=== PATIENT | female | born 1935 | race Caucasian/White ===

== ENCOUNTER → 2016-03-05 | Outpatient (CLI) | payer OTHER ==
[~2016-03-05] MED LIST: ACET-1256 PO; ALPHTAB4 PO; ASPI-428 PO; CALC1TAB9 PO; CLOP1TAB15 PO; EZET10TA63 PO; FESO8TAB PO; GLC/500 PO; LEVO88TA PO; LISI10TA PO; METO1TAB66 PO; MULTCAP33 PO; POLY335019 PO; PRED-301 PO; RANI150T3 PO
== END | disposition home or self-care (01) ==
LOC: C.LABMFLN 10:49
PROVIDERS: ATTEND Family Medicine
DX: R35.0 Frequency of micturition (principal)

== ENCOUNTER → 2016-03-12 | Outpatient (CLI) | payer OTHER ==
[2016-03-12 17:55] LABS: URINE APPEARANCE CLEAR (CLEAR); URINE BILIRUBIN NEG (NEG); URINE COLOR YELLOW; URINE NITRITE NEG (NEG); URINE PH 8.5 (4.5-7.5); URINE SPECIFIC GRAVITY 1.015 (1.000-1.030); UROBILINOGEN NEG (NEG)
[2016-03-12 18:08] LABS: MANUAL MICROSCOPIC REQUIRED? NO; REVIEW REQ? NO
== END | disposition home or self-care (01) ==
LOC: C.LABMFLN 14:23
PROVIDERS: ATTEND Family Medicine
DX: R30.0 Dysuria (principal)

== ENCOUNTER → 2016-05-22 | Outpatient (CLI) | payer OTHER ==
[2016-05-22 13:36] LABS: ALT/SGPT 19 U/L (12-78); AST/SGOT 12 U/L (15-37); BLOOD UREA NITROGEN 35 mg/dl (7-18); BUN/CREATININE RATIO 35.6 (10-20); CALCIUM 8.9 mg/dl (8.5-10.1); CARBON DIOXIDE 31 mmol/L (21-32); CHLORIDE 105 mmol/L (98-107); CHOLESTEROL 197 mg/dl (0-200); CREATININE 0.99 mg/dl (0.60-1.20); GLUCOSE 101 mg/dl (70-99); POTASSIUM 4.5 mmol/L (3.5-5.1); SODIUM 140 mmol/L (136-145); TRIGLYCERIDES 83 mg/dl (0-150); VERY LOW DENSITY LIPOPROT CALC 17 mg/dl
[2016-05-22 13:47] LABS: CHOLESTEROL/HDL RATIO 2.5; HDL CHOLESTEROL 79 mg/dl; LDL CHOLESTEROL CALCULATED 101 mg/dl
[2016-05-22 13:51] LABS: ESTIMATED AVERAGE GLUCOSE 126 mg/dl; HA1C FLAG Normal (Normal)
== END | disposition home or self-care (01) ==
LOC: C.LABMFLN 08:24
PROVIDERS: ATTEND Family Medicine
DX: E11.40 Type 2 diabetes mellitus with diabetic neuropathy, unspecified (principal); E78.00 Pure hypercholesterolemia, unspecified; I10 Essential (primary) hypertension; E03.9 Hypothyroidism, unspecified

== ENCOUNTER → 2016-08-30 | Outpatient (CLI) | payer OTHER | END | disposition home or self-care (01) | LOC: C.LABMFLN 09:34 | PROVIDERS: ATTEND Family Medicine | DX: R39.15 Urgency of urination (principal); R35.0 Frequency of micturition; N39.0 Urinary tract infection, site not specified ==

== ENCOUNTER → 2016-09-11 | Outpatient (CLI) | payer OTHER ==
[2016-09-11 13:48] LABS: ALKALINE PHOSPHATASE 66 U/L (45-117); ALT/SGPT 23 U/L (12-78); AST/SGOT 16 U/L (15-37); BLOOD UREA NITROGEN 26 mg/dl (7-18); BUN/CREATININE RATIO 26.5 (10-20); CALCIUM 9.2 mg/dl (8.5-10.1); CARBON DIOXIDE 29 mmol/L (21-32); CHLORIDE 102 mmol/L (98-107); GLUCOSE 98 mg/dl (70-99); HDL CHOLESTEROL 88 mg/dl; POTASSIUM 4.4 mmol/L (3.5-5.1); SODIUM 140 mmol/L (136-145); TRIGLYCERIDES 77 mg/dl (0-150); VERY LOW DENSITY LIPOPROT CALC 15 mg/dl
[2016-09-11 13:53] LABS: ESTIMATED AVERAGE GLUCOSE 100 mg/dl; HA1C FLAG Normal (Normal)
[2016-09-11 13:59] LABS: CHOLESTEROL 218 mg/dl (0-200); CHOLESTEROL/HDL RATIO 2.5; LDL CHOLESTEROL CALCULATED 115 mg/dl
--- NOTE | 2016-09-18 06:56 | CODING QUERY MEDICAL NECESSITY ---
SUPPORTING DIAGNOSIS NEEDED A supporting diagnosis is required for the test/procedure performed on this patient in order for us to be reimbursed by the patient's insurance. Please provide a supporting diagnosis for the following test/procedure listed below next to the test name along with your signature. *If there is no additional diagnosis for this patient that would support the following test/procedure please document that below next to the test/procedure. Test(s)/Procedure(s) that require a supporting diagnosis: * HEMOGLOBIN A1C DIAGNOSIS: Provider Signature: Date: Thank you Lisa Fernandez [employer] Once completed, please kindly fax back to [phone] For questions please call [phone]
== END | disposition home or self-care (01) ==
LOC: C.LABMFLN 08:26
PROVIDERS: ATTEND Family Medicine
DX: R30.0 Dysuria (principal); E78.00 Pure hypercholesterolemia, unspecified; I10 Essential (primary) hypertension; E03.9 Hypothyroidism, unspecified; E11.9 Type 2 diabetes mellitus without complications

== ENCOUNTER → 2016-10-25 | Day surgery (SDC) | payer OTHER ==
[2016-10-10 12:02] VITALS: BMI 18.0
[~2016-10-25] VITALS: Ht 160 cm; Wt 48.2 kg
[~2016-10-25] MED LIST changes: +LIDOCAINE HCL 2% 2 ML VIAL (20MG/ML) ONE; +PROPOFOL IV EMULSION 10 MG/ML 20 ML VIAL IV ONE
[2016-10-25 13:03] VITALS: Ht 160 cm; Wt 48.2 kg
--- NOTE | 2016-10-25 14:08 | Endo History and Physical ---
History & Physical Date of Service: Oct 25, 2016. Chief Complaint: COLON ABNORMALITY, + COLOGUARD Referring Physician: DR. KERWIN HOFFMAN History of Present Illness For colonoscopy Past Surgical History Hx Cardiac Surgery: Yes (HEART CATH X2, STENTS X3, FEMORAL ARTERY STENTS X2) Hx Internal Defibrillator: No Hx Pacemaker: No Hx Abdominal Surgery: Yes (PARTIAL HYSTER, AUTUMN) Hx of Implantable Prosthesis: No Hx Post-Op Nausea and Vomiting: No Hx Cancer Surgery: No Hx Thoracic Surgery: No Hx Orthopedic: No Hx Urinary Tract Surgery: No Family History Polyp Social History Smoking Status: Never Smoker Hx Substance Use: No Hx Alcohol Use: No Allergies Coded Allergies: Acetaminophen (Verified Allergy, Unknown, HIVES, 10/10/16) Adhesives (Verified Allergy, Unknown, RASH, 10/10/16) Codeine (Verified Allergy, Unknown, PT UNSURE REACTION, 10/10/16) Hydrocodone (Verified Allergy, Unknown, HIVES, 10/10/16) Nitroglycerin (Verified Allergy, Unknown, SEIZURE, 10/10/16) Statins (Verified Allergy, Unknown, MUSCLE WEAKNESS AND PAIN, 10/10/16) Sulfa Antibiotics (Verified Allergy, Unknown, RASH, 10/10/16) Current Medications Reported Home Medications Medications Dose Route/Sig Max Daily Dose Days Date Category Beano ([id number]) 1 Tab Tab 1 Tab PO NOON 10/10/16 Reported Tylenol (Acetaminophen) 500 Mg Tab 500 Mg PO Q6H PRN 10/10/16 Reported Miralax (Polyethylene Glycol 3350) 1 Pow Pow 17 Gm PO DAILY PRN 10/10/16 Reported Toviaz (Fesoterodine Fumarate) 8 Mg Tab 1 Tab PO QAM 10/10/16 Reported Plavix (Clopidogrel Bisulfate) 75 Mg Tab 75 Mg PO QAM 10/10/16 Reported Prinivil (Lisinopril) 10 Mg Tab 10 Mg PO QAM 10/10/16 Reported Glucophage (Metformin Hcl) 500 Mg Tab 500 Mg PO QAM 10/10/16 Reported Zantac (Ranitidine HCl) 150 Mg Tab 150 Mg PO BID 10/10/16 Reported Zetia (Ezetimibe) 10 Mg Tab 10 Mg PO QAM 10/10/16 Reported Citracal + D3 Maximum (Calcium Citrate-Vitamin D) 1 Tab Tab 2 Tab PO TID 10/10/16 Reported Preservision Areds (Multiple Vitamins W/ Minerals) 1 Cap Cap 1 Cap PO BID 10/10/16 Reported Synthroid (Levothyroxine Sodium) 88 Mcg Tab 88 Mcg PO QPM 10/10/16 Reported Ecotrin Low Strength (Aspirin) 81 Mg Tab 1 Tab PO QAM 10/10/16 Reported Prednisone 5 Mg Tab 5 Mg PO QAM 10/10/16 Reported Toprol Xl (Metoprolol Succinate) 50 Mg Tab 50 Mg PO QAM 10/10/16 Reported Vital Signs Weight (Kilograms): 48.18 Height (Feet): 5 Height (Inches): 3 Date Time Temp Pulse Resp B/P (MAP) Pulse Ox O2 Delivery O2 Flow Rate FiO2 10/25/16 13:09 36.2 68 18 175/50 (91) 100 Room Air Physical Exam General Appearance: WD/WN Respiratory/Chest: Respiratory effort: no dyspnea Cardiovascular: Heart Auscultation: RRR Abdomen: Inspection & Palpation: soft Assessment and Plan Positive cologuard test for colonoscopy
--- NOTE | 2016-10-25 14:42 | Discharge Instructions ---
Endoscopy Patient Instructions Date / Procedure(s) Performed Oct 25, 2016. Colonoscopy Allergy Information Coded Allergies: Acetaminophen (Verified Allergy, Unknown, HIVES, 10/10/16) Adhesives (Verified Allergy, Unknown, RASH, 10/10/16) Codeine (Verified Allergy, Unknown, PT UNSURE REACTION, 10/10/16) Hydrocodone (Verified Allergy, Unknown, HIVES, 10/10/16) Nitroglycerin (Verified Allergy, Unknown, SEIZURE, 10/10/16) Statins (Verified Allergy, Unknown, MUSCLE WEAKNESS AND PAIN, 10/10/16) Sulfa Antibiotics (Verified Allergy, Unknown, RASH, 10/10/16) Discharge Date / Findings Oct 25, 2016. redundant colon Medication Instructions Stopped Medication(s): PLAVIX Restart Stopped Medication(s): resume meds Reported Home Medications Medications Dose Route/Sig Max Daily Dose Days Date Category Beano ([id number]) 1 Tab Tab 1 Tab PO NOON 10/10/16 Reported Tylenol (Acetaminophen) 500 Mg Tab 500 Mg PO Q6H PRN 10/10/16 Reported Miralax (Polyethylene Glycol 3350) 1 Pow Pow 17 Gm PO DAILY PRN 10/10/16 Reported Toviaz (Fesoterodine Fumarate) 8 Mg Tab 1 Tab PO QAM 10/10/16 Reported Plavix (Clopidogrel Bisulfate) 75 Mg Tab 75 Mg PO QAM 10/10/16 Reported Prinivil (Lisinopril) 10 Mg Tab 10 Mg PO QAM 10/10/16 Reported Glucophage (Metformin Hcl) 500 Mg Tab 500 Mg PO QAM 10/10/16 Reported Zantac (Ranitidine HCl) 150 Mg Tab 150 Mg PO BID 10/10/16 Reported Zetia (Ezetimibe) 10 Mg Tab 10 Mg PO QAM 10/10/16 Reported Citracal + D3 Maximum (Calcium Citrate-Vitamin D) 1 Tab Tab 2 Tab PO TID 10/10/16 Reported Preservision Areds (Multiple Vitamins W/ Minerals) 1 Cap Cap 1 Cap PO BID 10/10/16 Reported Synthroid (Levothyroxine Sodium) 88 Mcg Tab 88 Mcg PO QPM 10/10/16 Reported Ecotrin Low Strength (Aspirin) 81 Mg Tab 1 Tab PO QAM 10/10/16 Reported Prednisone 5 Mg Tab 5 Mg PO QAM 10/10/16 Reported Toprol Xl (Metoprolol Succinate) 50 Mg Tab 50 Mg PO QAM 10/10/16 Reported Provider Instructions Activity Restrictions - No exercising or heavy lifting for 24 hours. - Do not drink alcohol the day of the procedure. - Do not drive a car or operate machinery until the day after the procedure. - Do not make any important decisions or sign important papers in 24 hours after the procedure. Following Day: - Return to full activity which may include returning to work/school. Diet Start your diet with liquids and light foods (jello, soup, juice, toast). Then eat your usual diet if not nauseated. Treatment For Common After Affects For mild abdominal pain, bloating, or excessive gas: - Rest - Eat lightly - Lie on right side Follow-Up Information Follow-up with DR. KERWIN HOFFMAN as scheduled Anesthesia Information What You Should Know You have had a procedure that required some medicine to reduce anxiety and discomfort. This treatment is called moderate sedation. After receiving the treatment, you may be sleepy, but you will be able to breathe on your own. The effects of the treatment may last for several hours. Follow these instructions along with Activity/Diet recommendations noted above: * Do NOT do anything where dizziness or clumsiness would be dangerous. * Rest quietly at home today, then you can be up and about tomorrow. * Have a responsible person stay with you the rest of today. * You may have had an I.V. today. If so, you may take the dressing off later today. Recommendations Call your doctor if: * Trouble breathing * Continuous vomiting for more than 24 hours * Temperature above 101 degrees * Severe abdominal pain or bloating * Pain not relieved by pain medicine ordered * There is increased drainage or redness from any incision * A large amount of rectal bleeding greater than 2-3 tablespoons. (If you had a polyp/s removed or have hemorrhoids, a small amount of blood - from the rectum is to be expected.) * You have any unanswered questions or concerns. IN THE EVENT OF A SERIOUS EMERGENCY, GO TO THE NEAREST EMERGENCY ROOM Your discharge instructions were prepared by provider Blayne Downs. Patient Instructions Signature Page Elizabeth Vargas Patient (or Guardian) Signature/Date: I have read and understand the instructions given to me by my caregivers. Caregiver/RN/Doctor Signature/Date: The above-named patient and/or guardian has received patient instructions on this date. + Original Patient Signature Page (only) stays with chart. Please make copy for patient.
--- NOTE | 2016-10-25 15:04 | Anesthesiology Progress Note ---
Anesthesia Post Op Note Date & Time Oct 25, 2016 at 15:03 Vital Signs Pain Intensity: 0 Vital Signs Past 12 Hours Date Time Temp Pulse Resp B/P (MAP) Pulse Ox O2 Delivery O2 Flow Rate FiO2 10/25/16 14:51 62 18 134/37 (69) 99 Room Air 10/25/16 14:41 61 16 132/50 (77) 97 Room Air 10/25/16 13:09 36.2 68 18 175/50 (91) 100 Room Air Notes Mental Status: alert / awake / arousable, participated in evaluation Pt Amnestic to Procedure: Yes Nausea / Vomiting: adequately controlled Pain: adequately controlled Airway Patency, RR, SpO2: stable & adequate BP & HR: stable & adequate Hydration State: stable & adequate Anesthetic Complications: no major complications apparent
[2016-10-25 15:11] VITALS: BP 149/38; PULSE 65; O2SAT 93
--- NOTE | 2016-10-25 16:10 | GI REPORT ---
Procedure Date: 10/25/2016 2:16 PM Procedure: Colonoscopy Indications: Positive cologuard test Medicines: Propofol total dose 140 mg IV, Lidocaine 40 mg IV Complications: No immediate complications. Estimated Blood Loss: Estimated blood loss: none. Procedure: Pre-Anesthesia Assessment: - Prior to the procedure, a History and Physical was performed, and patient medications, allergies and sensitivities were reviewed. The patient's tolerance of previous anesthesia was reviewed. - The risks and benefits of the procedure and the sedation options and risks were discussed with the patient. All questions were answered and informed consent was obtained. After I obtained informed consent, the scope was passed under direct vision. Throughout the procedure, the patient's blood pressure, pulse, and oxygen saturations were monitored continuously. The scope was introduced through the anus and advanced to the cecum, identified by appendiceal orifice and ileocecal valve. The colonoscopy was technically difficult and complex due to significant looping. Successful completion of the procedure was aided by applying abdominal pressure. The patient tolerated the procedure well. The quality of the bowel preparation was good. Findings: The entire examined colon appeared normal. Impression: - The entire examined colon is normal. - No specimens collected. Recommendation: - Discharge patient to home (ambulatory). - Continue present medications. - Return to primary care physician PRN. Blayne Downs M.D. Blayne Downs MD 10/25/2016 2:44:14 PM This report has been signed electronically. Note Initiated On: 10/25/2016 2:16 PM I attest to the content of the Intraoperative Record and orders documented therein, exceptions below
== END | disposition home or self-care (01) ==
LOC: C.GI 12:52
PROVIDERS: ATTEND Internal Medicine Gastroenterology
DX: Z12.11 Encounter for screening for malignant neoplasm of colon (principal); Z83.71 Family history of colonic polyps; Z95.0 Presence of cardiac pacemaker; Z79.899 Other long term (current) drug therapy; E11.9 Type 2 diabetes mellitus without complications; Z79.4 Long term (current) use of insulin; I10 Essential (primary) hypertension; E07.9 Disorder of thyroid, unspecified

== ENCOUNTER → 2017-02-12 | Outpatient (CLI) | payer OTHER ==
[~2017-02-12] MED LIST changes: -LIDOCAINE HCL 2% 2 ML VIAL (20MG/ML) ONE; +METO-452 PO; -METO1TAB66 PO; -PROPOFOL IV EMULSION 10 MG/ML 20 ML VIAL IV ONE
[2017-02-12 12:14] LABS: ESTIMATED AVERAGE GLUCOSE 111 mg/dl; HA1C FLAG Normal (Normal)
[2017-02-12 12:38] LABS: ALT/SGPT 23 U/L (12-78); AST/SGOT 17 U/L (15-37); BLOOD UREA NITROGEN 24 mg/dl (7-18); CALCIUM 8.5 mg/dl (8.5-10.1); CARBON DIOXIDE 30 mmol/L (21-32); CHLORIDE 104 mmol/L (98-107); CREATININE 0.85 mg/dl (0.60-1.20); GLUCOSE 93 mg/dl (70-99); POTASSIUM 4.1 mmol/L (3.5-5.1); SODIUM 137 mmol/L (136-145)
[2017-02-12 12:58] LABS: ALKALINE PHOSPHATASE 51 U/L (45-117); CHOLESTEROL 182 mg/dl (0-200); CHOLESTEROL/HDL RATIO 2.1; HDL CHOLESTEROL 85 mg/dl; LDL CHOLESTEROL CALCULATED 80 mg/dl; THYROID STIMULATING HORMONE 0.861 uIu/ml (0.300-4.500); TRIGLYCERIDES 85 mg/dl (0-150); VERY LOW DENSITY LIPOPROT CALC 17 mg/dl
== END | disposition home or self-care (01) ==
LOC: C.LABMFLN 08:28
PROVIDERS: ATTEND Family Medicine
DX: E11.40 Type 2 diabetes mellitus with diabetic neuropathy, unspecified (principal); E78.00 Pure hypercholesterolemia, unspecified; I10 Essential (primary) hypertension; E03.9 Hypothyroidism, unspecified